=== PATIENT | female | born 1955 | race Caucasian/White ===

== ENCOUNTER 2021-12-19 12:22 | Emergency (ER) | payer BC, SELFPAY ==
--- NOTE | ~2021-12-19 | CT_ITS ---
EXAMINATION: CT brain wo con DATE: 12/19/2021 14:58 INDICATION: Confusion. TECHNIQUE: Computed tomography (CT) of the head was performed without intravenous contrast. The mA wa s adjusted according to patient size. Iterative reconstruction technique was employed. The dose-lengt h product was 681.00 mGy-cm. COMPARISON: Head CT 05/25/2015 FINDINGS: There is no intracranial hemorrhage, acute infarction, or abnormal intracranial mass lesion . The ventricles are normal in size. There are likely changes of ocular lens replacement surgeries. T here is mild mucosal thickening in the paranasal sinuses. The mastoid air cells are normal. IMPRESSION: 1. Normal brain. Reviewed, dictated and finalized at location A. IMPRESSION: 1. Normal brain.
--- NOTE | 2021-12-19 12:23 | ECG_ITS ---
Measurements Intervals [place] Rate: 88 P: 56 ID: [id number] QRS: -14 QRSD: 78 T: 12 QT: 338 QTc: 409 Interpretive Statements SINUS RHYTHM POSSIBLE LEFT ATRIAL ENLARGEMENT [-0.1mV P WAVE IN V1/V2] NONSPECIFIC T-WAVE ABNORMALITY ABNORMAL ECG NO PREVIOUS ECG AVAILABLE FOR COMPARISON Electronically Signed On 12-19-2021 15:01:06 CDT by Facundo Rogers M.D.
[2021-12-19 12:32] VITALS: BP 146/97; PULSE 90; RESP 16; TEMP 36.4; O2SAT 97
[2021-12-19 12:39] LABS: Basophils Absolute Auto 0.1 K/mm3 (0.0-0.1); Basophils Percent Auto 0.6 % (0.2-1.2); Eosinophils Absolute Auto 0.2 K/mm3 (0-0.3); Eosinophils Percent Auto 1.9 % (0-4.4); Hemoglobin 15.4 g/dL (12.0-15.0); Immature Granulocyte Absolute 0.02 K/mm3 (0.00-0.031); Immature Granulocyte Percent A 0.2 % (0-0.5); Lymphocytes Absolute Auto 2.26 K/mm3 (0.9-3.2); Lymphocytes Percent Auto 23.9 % (18.3-44.2); Mean Corpuscular HGB Conc 34.2 g/dl (32-36); Mean Corpuscular Hemoglobin 32.1 pg (26-34); Mean Corpuscular Volume 93.8 fl (80-100); Mean Platelet Volume 8.8 fl (7.4-10.4); Monocytes Absolute Auto 1.1 K/mm3 (0.1-0.6); Monocytes Percent Auto 11.6 % (2.6-8.5); Neutrophils Absolute Auto 5.8 K/mm3 (1.3-6.7); Neutrophils Percent Auto 61.8 % (45.5-73.1); Platelet Count Result 319 k/mm3 (150-375); Red Cell Distribution Width 12.2 % (11.5-14.5); White Blood Count 9.5 K/mm3 (4.5-10.0)
--- NOTE | 2021-12-19 12:44 | PC.NURSE ---
pt. up to front office administrator x2 stating my doctor called in orders that need to be done. RN educated pt. that it is up to the ED physician what is and is not ordered.
[2021-12-19 12:52] LABS: Alanine Aminotransferase 22 U/L (6-35); Albumin Level 4.6 g/dL (3.5-5.1); Alkaline Phosphatase 88 U/L (38-126); Anion Gap 9 mmol/L (8-16); Aspartate Amino Transferase 27 U/L (14-36); Bilirubin,Total 0.5 mg/dL (0.2-1.3); Blood Urea Nitrogen 18 mg/dL (7-17); Calcium 9.8 mg/dL (8.4-10.2); Carbon Dioxide 25 mmol/L (22-30); Chloride 107 mmol/L (98-107); Estimated CRCL calculation 63 ml/min; Estimated Glomerular Filt Rate > 60; Glucose 107 mg/dL (65-110); Lipase 70 U/L (23-300); Potassium 4.1 mmol/L (3.4-5.0); Sodium 141 mmol/L (137-145)
[2021-12-19 12:54] LABS: Prothrombin Time 12.9 Seconds (11.1-14.7)
[2021-12-19 12:55] LABS: Partial Thromboplastin Time 30.8 SECONDS (22.3-36.8)
[2021-12-19 13:01] VITALS: PULSE 88
[2021-12-19 13:02] LABS: Troponin I < 0.012 ng/mL (0.000-0.034)
[2021-12-19 13:40] VITALS: BP 118/80; PULSE 80; RESP 16; O2SAT 98
--- NOTE | 2021-12-19 14:45 | ED.ARRPALP ---
HPI - Arrhythmia/Palpitations General Chief Complaint: Arrhythmia/Palpitations Stated Complaint: fast heartbeat Time Seen by Provider: 12/19/21 13:13 History of Present Illness HPI narrative: Patient is a 66-year-old female who presents to the ER with reports of anxiousness and heart palpitations. Ongoing for several weeks. She was seen by her psychiatrist who is reducing one of her medications as it may be causing her anxiety. He had recommended that she come to an ER to be evaluated for potential arrhythmia or injury to her heart. Also recommend that she had a CT scan of her head she felt she was having issues with confusion. Patient does not feel she is having issues with confusion. She has no focal weakness or numbness. She denies any chest pain or chest pressure. No exertional chest pain. She does feel like she gets shaky and her heart starts racing. Denies any excessive caffeine intake. Related Data Allergies Allergy/AdvReac Type Severity Reaction Status Date / Time amoxicillin Allergy Unknown Verified 06/13/18 10:05 tetracycline Allergy Unknown Verified 06/13/18 10:05 nitroglycerin AdvReac Unknown Verified 06/13/18 10:05 Review of Systems Review of Systems: All systems reviewed & are unremarkable except as noted in HPI and below Constitutional: Constitutional: Denies chills, Denies fatigue and Denies fever(s) ENT: Denies nasal congestion and Denies sore throat Cardiovascular: Cardiovascular: Denies chest pain, Reports rapid heart rate and Denies radiating jaw, neck or arm pain Respiratory: Respiratory: Denies chest congestion, Denies cough and Denies dyspnea Gastrointestinal: Gastrointestinal: Denies abdominal pain, Denies nausea and Denies vomiting Neurologic: Denies syncope, Denies focal weakness and Denies numbness Psychiatric: Psychiatric: Reports anxiety, Denies depression, Denies homicidal ideation and Denies suicidal ideation PMFSH Past Medical History Medical History (Updated 12/19/21 @ 16:31 by Vasquez Stone MD) Depression Diabetes GERD (gastroesophageal reflux disease) Hypercholesterolemia Hypothyroidism Surgical History Surgical History (Updated 12/19/21 @ 16:26 by Vasquez Stone MD) History of hysterectomy Exam Narrative: GENERAL: Well-appearing, well-nourished, and in no acute distress. HEAD: Normocephalic, atraumatic. EYES: PERRL and EOMI. CHEST: Clear to auscultation. No respiratory distress. HEART: Regular rate and rhythm. Normal peripheral pulses. ABDOMEN: Soft, nontender, nondistended, normal active bowel sounds. EXTREMITIES: Normal range of motion. No edema. SKIN: Warm, dry, no rash. NEURO: Alert and oriented x3. PSYCH: Flat affect, no SI/HI, normal thought content. Course Course Emergency Course: Patient resting comfortably. Informed of results. Discharge home. Recommend follow-up with PCP. Vital Signs Vital signs: Vital Signs Temperature 97.6 F 12/19/21 12:32 Pulse Rate 90 12/19/21 12:32 Respiratory Rate 16 12/19/21 12:32 Blood Pressure 146/97 H 12/19/21 12:32 Pulse Oximetry 97 12/19/21 12:32 Oxygen Delivery Room Air 12/19/21 12:32 Temperature 97.6 F 12/19/21 12:32 Pulse Rate 81 12/19/21 15:37 Respiratory Rate 16 12/19/21 15:37 Blood Pressure 136/88 12/19/21 15:37 Pulse Oximetry 97 12/19/21 15:37 Oxygen Delivery Room Air 12/19/21 12:32 MDM - Arrhythmia/Palpitations Lab Data Result diagrams: 12/19/21 12:34 12/19/21 12:34 Labs: Lab Results 12/19/21 12/19/21 12/19/21 Range/Units 12:34 12:34 12:34 WBC 9.5 (4.5-10.0) K/mm3 RBC 4.80 (4.2-5.4) M/mm3 Hgb 15.4 H (12.0-15.0) g/dL Hct 45.0 (37.0-47.0) % MCV 93.8 (80-100) fl MCH 32.1 (26-34) pg MCHC 34.2 (32-36) g/dl RDW 12.2 (11.5-14.5) % Plt Count 319 (150-375) k/mm3 MPV 8.8 (7.4-10.4) fl Immature Gran % (Auto) 0.2 (0-0.5) % Neut % (Auto) 61.8 (45.5-73.1
[2021-12-19 15:37] VITALS: BP 136/88; PULSE 81; RESP 16; O2SAT 97
[2021-12-19 15:46] LABS: Troponin I < 0.012 ng/mL (0.000-0.034)
[2021-12-19 16:44] VITALS: BP 140/86; PULSE 86; RESP 16; O2SAT 98
== END 2021-12-19 16:50 | disposition home or self-care (01) ==
PROVIDERS: Emergency Medicine; Emergency Provider Emergency Medicine
DX: R00.2 Palpitations (principal); F41.9 Anxiety disorder, unspecified; E11.9 Type 2 diabetes mellitus without complications; E78.00 Pure hypercholesterolemia, unspecified; E03.9 Hypothyroidism, unspecified; K21.9 Gastro-esophageal reflux disease without esophagitis; Z90.710 Acquired absence of both cervix and uterus; R94.31 Abnormal electrocardiogram [ECG] [EKG]
CPT/HCPCS: 36415; 70450; 80053; 83690; 84443; 84484; 85025; 85610; 85730; 93005; 99284

== ENCOUNTER 2023-01-13 11:36 | Emergency (ER) | payer BC, SELFPAY ==
[2023-01-13 11:48] VITALS: BP 120/83; PULSE 80; RESP 16; TEMP 36; O2SAT 96
[2023-01-13 11:52] VITALS: BP 120/83; PULSE 80; RESP 16; TEMP 36; O2SAT 96
--- NOTE | 2023-01-13 11:58 | ED.GENADULT ---
HPI - General Adult General Chief complaint: Upper Respiratory Infection Stated complaint: SORE THROAT Time Seen by Provider: 01/13/23 11:39 Mode of arrival: ambulatory Limitations: no limitations History of Present Illness HPI narrative: 67-year-old female presents with concern for a sore throat swallowing a pill. She reports she cut is Zoloft pill in half and swallowed it with a sip of coffee and it scratched her throat. She reports since then she has some pain with swallowing. She reports since then she has drank water and ate a peanut butter sandwich. She denies cough, difficulty swallowing. Denies any similar instances in the past MD complaint: Sore throat Related Data Home Medications Medication Instructions Recorded Confirmed alendronate 70 mg tablet 70 mg PO WEEKLY 01/13/23 01/13/23 atorvastatin 40 mg tablet 40 mg PO DAILY 01/13/23 01/13/23 bupropion HCl 100 mg tablet,12 hr 100 mg PO DAILY 01/13/23 01/13/23 sustained-release carbidopa 25 mg-levodopa 100 mg 1 tablet PO TID 01/13/23 01/13/23 tablet doxepin 50 mg capsule 50 mg PO DAILY 01/13/23 01/13/23 gabapentin 300 mg capsule 300 mg PO TID 01/13/23 01/13/23 levothyroxine 75 mcg capsule 75 mcg PO DAILY 01/13/23 01/13/23 lorazepam 1 mg tablet 1 mg PO DIRECTED 01/13/23 01/13/23 primidone 50 mg tablet 50 mg PO HS 01/13/23 01/13/23 propranolol 40 mg tablet 40 mg PO DAILY 01/13/23 01/13/23 quetiapine 400 mg tablet 400 mg PO DIRECTED 01/13/23 01/13/23 sertraline 100 mg tablet 100 mg PO DAILY 01/13/23 01/13/23 Allergies Allergy/AdvReac Type Severity Reaction Status Date / Time amoxicillin Allergy Unknown Verified 06/13/18 10:05 tetracycline Allergy Unknown Verified 06/13/18 10:05 nitroglycerin AdvReac Unknown Verified 06/13/18 10:05 Review of Systems Review of Systems: CONSTITUTIONAL: Denies malaise, chills, sweats, or fever. EYES: Denies visual changes, redness, or discharge. ENT: Denies rhinorrhea, congestion, sinus pain, otalgia. Reports sore throat. CARDIOVASCULAR: Denies chest pain, palpitations, or edema. RESPIRATORY: Denies cough or dyspnea. GASTROINTESTINAL: Denies nausea, vomiting. Denies difficulty swallowing, reports pain with swallowing All systems reviewed & are unremarkable except as noted in HPI and below PMFSH Past Medical History Medical History (Updated 01/13/23 @ 12:53 by Libby Chen NP) Depression Diabetes GERD (gastroesophageal reflux disease) Hypercholesterolemia Hypothyroidism Surgical History Surgical History (Updated 12/19/21 @ 16:26 by Vasquez Stone MD) History of hysterectomy Comments At time of signature, agree with nursing past medical, surgical, social and family history. There is no relevant family history pertinent to the presenting complaint Exam Narrative: GENERAL: Well-appearing, well-nourished, and in no acute distress. HEAD: Normocephalic, atraumatic. EYES: PERRLA, sclera clear, and EOMI. No nystagmus. ENT: Nares clear. Mucous membranes moist. Oropharynx without erythema or lesions. Tonsils not enlarged and without exudate. NECK: Supple. CHEST: No respiratory distress. Speaks in full sentences. HEART: Regular rate and rhythm. SKIN: Warm, dry, no visible rash. NEURO: Alert and oriented x3 PSYCH: Normal mood and affect Course Course Emergency Course: Patient is aware of diagnosis, understands and agrees to treatment plan. Anticipatory guidance given. Patient agrees to follow-up as directed and is aware of reasons to seek care at the emergency department. Portions of this record may have been created with voice recognition software Level of Care: Express Care Visit Reevaluation(s) Reevaluation #1: Patient reports some improvement with pain with viscous lidocaine. Date: 01/13/23 Time: 12:48 Vital Signs Vital signs: Vital Signs Temperature 96.8 F L 01/13/23 11:48 Pulse Rate 80 01/13/23 11:48 Respiratory Rate 16 01/13/23 11:48 Blood Pressure 120/83 11
[2023-01-13] MEDS: LIDOCAINE HCL 2% VISC SOLN 15 ML UDC PO (12:15)
--- NOTE | 2023-01-13 16:10 | PC.NURSE ---
1205- BUSINESS OPERATIONS DIRECTOR wants pt to gargle half of the viscous lidocaine first to see if that will help pain, and then wait 20 mins, and she may swallow the remainder of med.
== END 2023-01-13 12:57 | disposition home or self-care (01) ==
PROVIDERS: Emergency Provider Nurse Practitioner
DX: S27.818A Other injury of esophagus (thoracic part), initial encounter (principal); X58.XXXA Exposure to other specified factors, initial encounter; E11.9 Type 2 diabetes mellitus without complications; K21.9 Gastro-esophageal reflux disease without esophagitis; E78.00 Pure hypercholesterolemia, unspecified; E03.9 Hypothyroidism, unspecified; F32.A Depression, unspecified
CPT/HCPCS: 99213; G0463

== ENCOUNTER 2024-09-09 10:09 | Outpatient (CLI) | payer BC, SELFPAY ==
--- NOTE | ~2024-09-09 | XR_ITS ---
EXAM/PROCEDURE: XR chest 2V - 09/09/2024 10:19 CDT HISTORY: 68 years old Female with hypoxia TECHNIQUE: Two view(s) of the chest. COMPARISON: None available. FINDINGS: LUNGS/ PLEURA: No focal consolidation. No appreciable pneumothorax or large pleural effusion. HEART/ MEDIASTINUM: Heart appears normal in size. BONES: Degenerative changes. S-shaped curvature of the spine is seen. OTHER: Visualized upper abdomen is unremarkable. IMPRESSION: No acute process. Reviewed, dictated and finalized at location A. IMPRESSION: No acute process.
== END 2024-09-09 10:10 | disposition home or self-care (01) ==
DX: R09.02 Hypoxemia (principal)
CPT/HCPCS: 71046